=== PATIENT | female | born 1965 | race Caucasian/White ===

== ENCOUNTER 2017-04-22 12:08 | Emergency (ER) | payer MEDICAID ==
[~2017-04-22] VITALS: Ht 165.1 cm; Wt 109.8 kg
[2017-04-22 12:17] VITALS: BP_SYST 122
== END 2017-04-22 13:05 | disposition home or self-care (01) ==
LOC: SED 12:08
DX: H10.89 Other conjunctivitis (principal); J45.909 Unspecified asthma, uncomplicated; I10 Essential (primary) hypertension; Z98.890 Other specified postprocedural states
CPT/HCPCS: 99281